=== PATIENT | female | born 1955 | race Caucasian/White ===

== ENCOUNTER → 2019-12-26 | Outpatient (CLI) | payer SELFPAY | END | disposition home or self-care (01) | LOC: COVID19 11:01 | DX: B34.9 Viral infection, unspecified (principal); Z20.828 Contact with and (suspected) exposure to other viral communicable diseases ==

== ENCOUNTER 2025-08-12 14:10 | Emergency (ER) | payer OTHER ==
[~2025-08-12] VITALS: Ht 165.1 cm; Wt 74.8 kg
[2025-08-12] MEDS ORDERED: Acetaminophen/Oxycodone 5 MG/325 MG TABLET PO ONE (15:10)
[2025-08-12] MEDS ORDERED: Ondansetron Hydrochloride 4 MG TAB PO ONE (15:10)
[2025-08-12] MEDS ORDERED: Ondansetron4 MG PO (16:33)
[2025-08-12] MEDS ORDERED: PERCOCET 5-3251 EACH PO (16:33)
[2025-08-12] MEDS ORDERED: HYDROmorphONE Hydrochloride 0.5 MG/0.5 ML SYRINGE IM ONE (16:35)
== END 2025-08-12 17:26 | disposition home or self-care (01) ==
LOC: ED 14:10
DX: S42.202A Unspecified fracture of upper end of left humerus, initial encounter for closed fracture (principal); S80.02XA Contusion of left knee, initial encounter; E78.5 Hyperlipidemia, unspecified; W00.0XXA Fall on same level due to ice and snow, initial encounter; Y93.89 Activity, other specified; Y92.89 Other specified places as the place of occurrence of the external cause; Y99.8 Other external cause status